=== PATIENT | male | born 1950 | race Caucasian/White ===

== ENCOUNTER → 2020-09-14 | Outpatient (CLI) | payer MEDICARE, SELFPAY ==
[~2020-09-14] MED LIST: ALLOPURINOL300 MG PO; CELECOXIB400 MG PO; LEVOXYL50 MCG PO; LIPITOR40 MG PO; Voltaren Gel 1 % TOP; ZESTRIL5 MG PO
== END ==
LOC: NM 09:00
DX: R10.11 Right upper quadrant pain (principal)
CPT/HCPCS: 78226; A9537

== ENCOUNTER 2021-04-14 11:59 | Emergency (ER) | payer MEDICARE ==
[2021-04-14 12:55] LABS: HEMOGLOBIN 16.1 gm/dl (14.0-17.5); RED BLOOD COUNT 4.82 M/UL (4.20-5.50); WHITE BLOOD COUNT 5.4 K/UL (4.5-11.0)
[2021-04-14 13:22] LABS: BUN/CREATININE RATIO 15 (0-10)
[2021-04-14] MEDS ORDERED: BENZONATATE100 MG PO (14:37)
[2021-04-14] MEDS ORDERED: PROVENTIL HFA6.7 GM INH (14:37)
== END 2021-04-14 15:07 | disposition home or self-care (01) ==
LOC: ER1 11:59
PROVIDERS: Emergency Medicine
DX: U07.1 COVID-19 (principal); I10 Essential (primary) hypertension; E66.9 Obesity, unspecified; R94.5 Abnormal results of liver function studies; E87.1 Hypo-osmolality and hyponatremia
CPT/HCPCS: 0240U; 71045; 80053; 82550; 82553; 83605; 83874; 84484; 85025; 87040; 93005; 99283

== ENCOUNTER → 2021-07-03 | Outpatient (CLI) | payer MEDICARE ==
[~2021-07-03] MED LIST changes: +BENZONATATE100 MG PO; +PROVENTIL HFA6.7 GM INH
== END ==
LOC: EXRD 05-21 09:00
DX: Z13.6 Encounter for screening for cardiovascular disorders (principal)
CPT/HCPCS: 76706